=== PATIENT | male | born 1940 | race Caucasian/White ===

== ENCOUNTER 2019-08-04 11:22 | Day surgery (SDC) | payer MEDICARE, OTHER ==
[2019-08-04] VITALS (11 sets, daily range): BP systolic 121–147; BP diastolic 66–82
[~2019-08-04] VITALS: Ht 170.2 cm; Wt 80.5 kg
[2019-08-04] MEDS ORDERED: normal saline 1,000 ML IV SCH (11:45)
[2019-08-04] MEDS ORDERED: nitroGLYCERIN 0.4mg SUBLingual tab SL PRN (11:45)
[2019-08-04] MEDS ORDERED: LORazepam 0.5 MG tablet PO PRN (11:45)
[2019-08-04] MEDS ORDERED: diphenhydrAMINE 25mg capsule PO PRN (11:45)
[2019-08-04] MEDS ORDERED: GLUC100017 PO (12:14)
[2019-08-04] MEDS ORDERED: LISI-600 PO (12:14)
[2019-08-04] MEDS ORDERED: ADVIL (12:14)
[2019-08-04] MEDS ORDERED: UBID10CA4 PO (12:14)
[2019-08-04] MEDS ORDERED: ATOR20TA PO (12:14)
[2019-08-04] MEDS ORDERED: IBUPROFEN (12:14)
[2019-08-04] MEDS ORDERED: OMEP20TA23 PO (12:14)
[2019-08-04] MEDS ORDERED: ASPI-611 PO (12:14)
[2019-08-04] MEDS ORDERED: FISH OIL PO (12:14)
[2019-08-04] MEDS ORDERED: LIDOcaine 1% (10mg/ml)w/preservative injection 20ml MDV ONE (13:26)
[2019-08-04] MEDS ORDERED: midazolam 2 mg/2 ml injection ONE (13:26)
[2019-08-04] MEDS ORDERED: fentaNYL/PF 50MCG/1 ML 2ML syringe ONE (13:26)
[2019-08-04] MEDS ORDERED: iohexol 350 MG/ML 50ML vial IV ONE (13:26)
[2019-08-04] MEDS ORDERED: iohexol 350MG/ML 100ml bottle IV ONE (13:26)
[2019-08-04 13:31] LABS: BASOPHILS % (AUTO) 0.5 % (0-1); EOSINOPHILS # (AUTO) 0.1 X10'3 (0-0.9); EOSINOPHILS % (AUTO) 1.4 % (0-6); HEMOGLOBIN 16.6 g/dl (14.0-17.9); LYMPHOCYTES # (AUTO) 1.4 X10'3 (1.1-4.8); LYMPHOCYTES % (AUTO) 16.2 % (21-51); MEAN CORPUSCULAR HEMOGLOBIN 31.1 PG (27.0-31.0); MEAN CORPUSCULAR HGB CONC 33.9 g/dL (33.0-36.5); MEAN CORPUSCULAR VOLUME 91.8 FL (78-98); MEAN PLATELET VOLUME 9.2 FL (7.4-10.4); MONOCYTES # (AUTO) 0.6 X10'3 (0-0.9); MONOCYTES % (AUTO) 6.7 % (2-12); NEUTROPHILS # (AUTO) 6.5 X10'3 (1.8-7.7); NEUTROPHILS % (AUTO) 75.2 % (42-75); PLATELET COUNT 208 X10'3 (140-440); RED BLOOD COUNT 5.34 X10'6 (4.70-6.10); RED CELL DISTRIBUTION WIDTH 14.1 % (11.5-14.5); WHITE BLOOD COUNT 8.6 X10'3 (4.5-11.0)
[2019-08-04 13:48] LABS: ALBUMIN 3.6 G/DL (3.4-5.0); ANION GAP 6 (8-16); BLOOD UREA NITROGEN 24 MG/DL (7-18); BUN/CREATININE RATIO 20.9 (5.4-32.0); CALCIUM 8.9 MG/DL (8.5-10.1); CHLORIDE 109 MMOL/L (99-107); CREATININE 1.15 MG/DL (0.60-1.10); GLUCOSE 91 MG/DL (70-104); POTASSIUM 4.3 MMOL/L (3.5-5.1); SODIUM 141 MMOL/L (135-145); TROPONIN I < 0.04 NG/ML (0.0-0.05); eGFR 62 ML/MIN
[2019-08-04] MEDS ORDERED: proCHLORperazine 10 MG/2 ml inj IV PRN (14:50)
[2019-08-04] MEDS ORDERED: ondansetron/PF 4mg/2ml inj IV PRN (14:50)
[2019-08-04] MEDS ORDERED: OXAZEpam 15mg capsule PO PRN (14:50)
[2019-08-04] MEDS ORDERED: HYDROcodone/acetaminophen 10/325mg tab PO PRN (14:50)
[2019-08-04] MEDS ORDERED: HYDROcodone/acetaminophen 5mg/325mg tablet PO PRN (14:50)
== END 2019-08-04 19:28 | disposition home or self-care (01) ==
LOC: SSTAY O 11:22 → MED 3N 11:26 → SSTAY O 19:28
PROVIDERS: ATTEND Internal Medicine Cardiovascular Disease
DX: R94.39 Abnormal result of other cardiovascular function study (principal); T82.858A Stenosis of other vascular prosthetic devices, implants and grafts, initial encounter; I25.10 Atherosclerotic heart disease of native coronary artery without angina pectoris; I25.82 Chronic total occlusion of coronary artery; I10 Essential (primary) hypertension; E78.5 Hyperlipidemia, unspecified; J44.9 Chronic obstructive pulmonary disease, unspecified; Z87.891 Personal history of nicotine dependence; Z79.899 Other long term (current) drug therapy; Y83.8 Other surgical procedures as the cause of abnormal reaction of the patient, or of later complication, without mention of misadventure at the time of the procedure; Y92.89 Other specified places as the place of occurrence of the external cause
CPT/HCPCS: 36415; 71045; 80048; 84484; 85025; 85610; 93005; 93459; 99152; 99153; C1769; J1644; J2001; J2250; J3010; J7030; Q0163; Q9967; A4620; A6258; C1760; GO378

== ENCOUNTER 2020-07-12 07:39 | Day surgery (SDC) | payer MEDICARE, BC ==
[2020-07-10 11:11] LABS: BASOPHILS % (AUTO) 0.5 % (0-1); EOSINOPHILS # (AUTO) 0.1 X10'3 (0-0.9); EOSINOPHILS % (AUTO) 2.3 % (0-6); HEMATOCRIT 48.3 % (42.0-52.0); HEMOGLOBIN 16.1 g/dl (14.0-17.9); LYMPHOCYTES # (AUTO) 1.2 X10'3 (1.1-4.8); LYMPHOCYTES % (AUTO) 19.5 % (21-51); MEAN CORPUSCULAR HEMOGLOBIN 30.2 PG (27.0-31.0); MEAN CORPUSCULAR HGB CONC 33.5 g/dL (33.0-36.5); MEAN CORPUSCULAR VOLUME 90.3 FL (78-98); MEAN PLATELET VOLUME 9.2 FL (7.4-10.4); MONOCYTES # (AUTO) 0.7 X10'3 (0-0.9); MONOCYTES % (AUTO) 11.2 % (2-12); NEUTROPHILS # (AUTO) 4.2 X10'3 (1.8-7.7); NEUTROPHILS % (AUTO) 66.5 % (42-75); PLATELET COUNT 244 X10'3 (140-440); RED BLOOD COUNT 5.34 X10'6 (4.70-6.10); RED CELL DISTRIBUTION WIDTH 13.6 % (11.5-14.5); WHITE BLOOD COUNT 6.4 X10'3 (4.5-11.0)
[2020-07-10 11:23] LABS: PARTIAL THROMBOPLASTIN TIME 27 SECONDS (22-32)
[2020-07-10 11:27] LABS: ALANINE AMINOTRANSFERASE 41 U/L (12-78); ALBUMIN 3.7 G/DL (3.4-5.0); ALBUMIN/GLOBULIN RATIO 0.9 (1.1-1.5); ANION GAP 10 (8-16); ASPARTATE AMINO TRANSFERASE 31 U/L (10-37); BILIRUBIN,TOTAL 0.3 MG/DL (0.1-1.0); BLOOD UREA NITROGEN 33 MG/DL (7-18); BUN/CREATININE RATIO 26.6 (5.4-32.0); CALCIUM 9.3 MG/DL (8.5-10.1); CHLORIDE 105 MMOL/L (99-107); CREATININE 1.24 MG/DL (0.60-1.10); GLUCOSE 104 MG/DL (70-104); POTASSIUM 4.6 MMOL/L (3.5-5.1); SODIUM 138 MMOL/L (135-145); TOTAL CARBON DIOXIDE 22.8 MMOL/L (24-32); TOTAL PROTEIN 7.7 G/DL (6.4-8.2); eGFR 56 ML/MIN
[2020-07-10 11:28] LABS: ALKALINE PHOSPHATASE 66 IU/L (46-116)
[2020-07-12] VITALS (12 sets, daily range): BP systolic 117–145; BP diastolic 48–117
[~2020-07-12] VITALS: Ht 170.2 cm; Wt 83.5 kg
[~2020-07-12 07:39] MED LIST: ADVIL; ASPI-611 PO; ATOR20TA PO; FISH OIL PO; GLUC100017 PO; IBUPROFEN; LISI20TA28 PO; OMEP20TA23 PO; UBID10CA4 PO
[2020-07-12] MEDS ORDERED: nitroGLYCERIN 0.4mg SUBLingual tab SL PRN (08:00)
[2020-07-12] MEDS ORDERED: normal saline 1,000 ML IV SCH (08:00)
[2020-07-12] MEDS ORDERED: diphenhydrAMINE 25mg capsule PO PRN (08:00)
[2020-07-12] MEDS ORDERED: LORazepam 0.5 MG tablet PO PRN (08:00)
[2020-07-12] MEDS ORDERED: HYDR-3964 PO (08:12)
[2020-07-12] MEDS ORDERED: NITR0.4T48 SL (08:12)
[2020-07-12] MEDS ORDERED: iohexol 350 MG/ML 50ML vial IV ONE ×2 (08:44→09:54)
[2020-07-12] MEDS ORDERED: iohexol 350MG/ML 100ml bottle IV ONE ×2 (08:44→10:04)
[2020-07-12] MEDS ORDERED: fentaNYL/PF 50MCG/1 ML 2ML syringe ONE (08:44)
[2020-07-12] MEDS ORDERED: midazolam 1 mg/ML 2ml injection ONE (08:44)
[2020-07-12] MEDS ORDERED: LIDOcaine 1% (10mg/ml)w/preservative injection 20ml MDV ONE (08:44)
[2020-07-12] MEDS ORDERED: normal saline 1,000 ML IV ONE (11:05)
[2020-07-12] MEDS ORDERED: OXAZEpam 15mg capsule PO PRN (11:10)
[2020-07-12] MEDS ORDERED: proCHLORperazine 10 MG/2 ml inj IV PRN (11:10)
[2020-07-12] MEDS ORDERED: HYDROcodone/acetaminophen 10/325mg tab PO PRN (11:10)
[2020-07-12] MEDS ORDERED: HYDROcodone/acetaminophen 5mg/325mg tablet PO PRN (11:10)
[2020-07-12] MEDS ORDERED: ondansetron/PF 4mg/2ml inj IV PRN (11:10)
== END 2020-07-12 17:00 | disposition home or self-care (01) ==
LOC: SSTAY O 07:39
PROVIDERS: ATTEND Internal Medicine Cardiovascular Disease
DX: R94.39 Abnormal result of other cardiovascular function study (principal); I25.10 Atherosclerotic heart disease of native coronary artery without angina pectoris; I25.82 Chronic total occlusion of coronary artery; E78.5 Hyperlipidemia, unspecified; I10 Essential (primary) hypertension; Z79.899 Other long term (current) drug therapy; Z79.01 Long term (current) use of anticoagulants
CPT/HCPCS: 36415; 71046; 80053; 84484; 85025; 85610; 85730; 93005; 93459; 99152; 99153; C1760; C1769; J1644; J2001; J2250; J3010; J7030; Q0163; Q9967; 75630; A4620; A6258

== ENCOUNTER 2023-01-09 08:35 | Day surgery (SDC) | payer MEDICARE, OTHER ==
[~2023-01-09 08:35] MED LIST changes: -ADVIL; -FISH OIL PO; +HYDR-3964 PO; +NITR0.4T48 SL
[2023-01-09 08:54] VITALS: BP 107/61; PULSE 74; RESP 16; TEMP 97.8; O2SAT 93
[2023-01-09] MEDS ORDERED: ROSU20TA73 PO (09:05)
[2023-01-09] MEDS ORDERED: CETI-194 PO (09:05)
[2023-01-09] MEDS ORDERED: ACET-1025 PO (09:05)
[2023-01-09] MEDS ORDERED: METO-395 PO (09:05)
[2023-01-09 11:00] VITALS: BP 140/59; PULSE 74; RESP 16; O2SAT 95
[2023-01-09 11:15] VITALS: BP 107/68; PULSE 61; RESP 14; O2SAT 93
== END 2023-01-09 11:30 | disposition home or self-care (01) ==
LOC: SSTAY O 08:35
PROVIDERS: ATTEND Radiology Vascular & Interventional Radiology
DX: C84.A1 Cutaneous T-cell lymphoma, unspecified lymph nodes of head, face, and neck (principal); I25.10 Atherosclerotic heart disease of native coronary artery without angina pectoris; Z79.899 Other long term (current) drug therapy; Z79.82 Long term (current) use of aspirin
CPT/HCPCS: 10005; 88184; 88185